=== PATIENT | male | born 1970 | race Caucasian/White ===

== ENCOUNTER 2018-05-06 21:52 | Emergency (ER) | payer SELFPAY ==
[2018-05-06] MEDS ORDERED: OXYCODONE-ACETAMINOPHEN 5-325 MG TABLET PO ONE (22:17)
--- NOTE | 2018-05-06 23:08 | RADIOLOGY REPORT (SQ) ---
EXAM DESCRIPTION: Left finger three views CLINICAL HISTORY: 47 years Male 5th finger injury COMPLETED DATE/TME: 05/06/2018 22:15 COMPARISON: None. TECHNIQUE: Left finger, three views FINDINGS: No acute fractures or dislocations are identified. No osseous destructive lesions. No radiopaque foreign object noted. IMPRESSION: No acute fracture is identified.
[2018-05-06] MEDS ORDERED: HYDROCODONE/ACETAMINOPHEN 5-325 MG (6 TAB/ER DISP) PO PRN (23:30)
--- NOTE | 2018-05-06 23:30 | ER Document Report ---
ED Hand/Wrist Injury - General Chief Complaint: Finger Injury Stated Complaint: FINGER INJURY Time Seen by Provider: 05/06/18 22:14 Mode of Arrival: Ambulatory Information source: Patient Notes: Patient is a 47-year-old male who presents to the ER today with left pinky pain after trying to start his lawnmower today and "tweaking it." Patient admits to redness and pain to the joint of the finger. Patient denies any numbness or tingling and has good range of motion of the finger. He denies any other injury. - Related Data Allergies/Adverse Reactions: No Known Allergies Allergy (Verified 05/06/18 22:19) Past Medical History - General Information source: Patient - Social History Smoking Status: Current Every Day Smoker Frequency of alcohol use: Occasional Family History: Reviewed & Not Pertinent Patient has suicidal ideation: No Patient has homicidal ideation: No Renal/ Medical History: Denies: Hx Peritoneal Dialysis Review of Systems - Review of Systems Constitutional: No symptoms reported EENT: No symptoms reported Cardiovascular: No symptoms reported Respiratory: No symptoms reported Gastrointestinal: No symptoms reported Genitourinary: No symptoms reported Male Genitourinary: No symptoms reported Musculoskeletal: See HPI Skin: No symptoms reported Hematologic/Lymphatic: No symptoms reported Neurological/Psychological: No symptoms reported Physical Exam - Vital signs Vitals: Temp Pulse Resp BP Pulse Ox 97.8 F 78 16 144/85 H 98 05/06/18 22:10 05/06/18 22:10 05/06/18 22:10 05/06/18 22:10 05/06/18 22:10 - Notes Notes: PHYSICAL EXAMINATION: GENERAL: Well-appearing and in no acute distress. HEAD: Atraumatic, normocephalic. EYES: Pupils equal round and reactive to light, extraocular movements intact, sclera anicteric, conjunctiva are normal. NECK: Normal range of motion, supple without lymphadenopathy LUNGS: CTAB and equal. No wheezes rales or rhonchi. HEART: Regular rate and rhythm without murmurs EXTREMITIES: See skin below, otherwise normal range of motion, no pitting edema. No cyanosis. NEUROLOGICAL: Cranial nerves grossly intact. Normal sensory/motor exams. PSYCH: Normal mood, normal affect. SKIN: Warm, Dry, normal turgor, erythema and tenderness over the PIP joint of the left fifth digit on the left hand, normal range of motion, good capillary refill, good sensation Course - Re-evaluation Re-evalutation: 05/07/18 00:36 X-ray negative for any dislocation or fracture. Patient be placed in a finger splint for comfort and was given pain medication. Given orthopedic follow-up information. - Vital Signs Vital signs: Temp Pulse Resp BP Pulse Ox 98.5 F 75 16 134/89 H 96 05/06/18 23:40 05/06/18 23:40 05/06/18 23:40 05/06/18 23:40 05/06/18 23:40 Discharge - Discharge Clinical Impression: Finger injury Qualifiers: Encounter type: initial encounter Laterality: left Qualified Code(s): S69.92XA - Unspecified injury of left wrist, hand and finger(s), initial encounter Condition: Stable Disposition: HOME, SELF-CARE Additional Instructions: Return immediately for any new or worsening symptoms. Follow up with primary care provider, call tomorrow to make followup appointment. Referrals: SUDARSHAN GALEAS, [ACTIVE STAFF] - Follow up as needed
[2018-05-07 00:11] VITALS: BP 134/89
== END 2018-05-06 23:45 | disposition home or self-care (01) ==
LOC: ER 21:52
DX: S69.92XA Unspecified injury of left wrist, hand and finger(s), initial encounter (principal); X58.XXXA Exposure to other specified factors, initial encounter; F17.200 Nicotine dependence, unspecified, uncomplicated
CPT/HCPCS: 99283